=== PATIENT | female | born 1960 | race Caucasian/White ===

== ENCOUNTER 2020-01-01 09:32 | Outpatient (CLI) | payer BC, SELFPAY ==
--- NOTE | ~2020-01-01 | CT_ITS ---
EXAMINATION:CT lung screening DATE: 01/01/2020 09:57 INDICATION: Personal history of tobacco dependence. Smoker who quit 1 year ago with 44 pack year hist ory. TECHNIQUE: Computed tomography (CT) of the chest was performed without intravenous contrast. Automate d exposure control and iterative reconstruction technique were employed. The dose-length product (DLP ) was 80.52 mGy-cm. COMPARISON: Chest CT 10/30/2018 FINDINGS: There is moderate emphysema. There is mild atelectasis in right middle lobe and lingula. Ca lcified left lung nodules and calcified left hilar lymph nodes are consistent with old granulomatous disease. Again seen is a 5 mm nodule in left lower lobe. Again seen is a 6 mm nodule in right lower l obe. No pleural effusion. The heart size is normal. There are coronary artery calcifications. No nevin cardial effusion. Calcifications in the spleen are consistent with old granulomatous disease. There i s mild thoracic spondylosis. IMPRESSION: 1. Lung-RADS category 2: Benign appearance or behavior. Continue annual screening with noncontrast lo w-dose chest CT in 12 months. Reviewed, dictated and finalized at location A. IMPRESSION: 1. Lung-RADS category 2: Benign appearance or behavior. Continue annual screeni ng with noncontrast low-dose chest CT in 12 months.
== END 2020-01-01 09:33 | disposition home or self-care (01) ==
LOC: ANHIMG 09:41
PROVIDERS: PCP Family Medicine; Visit Provider Nurse Practitioner Adult Health
DX: Z12.2 Encounter for screening for malignant neoplasm of respiratory organs (principal); Z87.891 Personal history of nicotine dependence
CPT/HCPCS: G0297

== ENCOUNTER 2024-08-06 12:56 | Outpatient (CLI) | payer MEDICARE, SELFPAY ==
--- NOTE | ~2024-08-06 | XR_ITS ---
EXAMINATION: XR knee LT min 4V DATE: 08/06/2024 13:27 INDICATION: Left knee pain TECHNIQUE: Weight bearing anteroposterior and Child, sunrise, and flexed lateral views of the lef t knee were obtained COMPARISON: None. FINDINGS: Mild genu varum with mild to moderate nonuniform joint space. The medial side of the medial compartme nt. Joint spaces are normal in the lateral and patellofemoral compartments with small marginal osteop hytes at the patellofemoral compartment consistent with additional mild osteoarthritis. No fracture. Suggestion of a small to moderate-sized left knee joint effusion. Soft tissues are otherwise unremark able. IMPRESSION: 1. Mild to moderate osteoarthritis in the medial compartment and mild osteoarthritis in the patellofe moral compartment. 2. Small to moderate-sized left knee joint effusion. Reviewed, dictated and finalized at location B. TIC BOAT BUFFER IMPRESSION: 1. Mild to moderate osteoarthritis in the medial compartment and mild osteoarth ritis in the patellofemoral compartment. 2. Small to moderate-sized left knee joint effusion.
--- OUTSIDE RECORDS SUMMARY | 2024-08-06 14:28 | XMS_ITS | Clinical Summary ---
Author Organization [facility] Address [address] [place] [address] Care Team Providers Care Tearoom Hostess Name Role Phone None, Provider MD Primary Care Provider Unavaila ble Allergies Active Allergy Reactions Criticality Noted Date Comments Codeine Rash Low 09/17/2021 Levofloxacin Rash Low 09/17/2021 Nitrofurantoin Rash Low 09/17/2021 Medications methylPREDNISol one, INEZ, 4 MG tablet 6 TABLETS ON DAY ONE, 5 TABLETS DAY TWO, 4 TABLETS DAY THREE, 3 TABLETS DAY FOUR, 2 TABLETS DAY FIVE, AND 1 TABLET DAY SIX 1 each 2 Active Additional Information Patient not taking.Reported on 09/20/2022 vitamin D2, ergocalciferol, (DRISDOL) 1.25 mg capsule Take 1 capsule (1.25 mg total) by mouth once a week. 3 Active lisinopril (PRINIVIL) 10 MG tablet Take 1 tablet (10 mg total) by mouth daily. 3 Active vitamin B-12 (CYANOCOBALAMIN ) 100 MCG tablet Take 0.5 tablets (50 mcg total) by mouth daily. Active Active Problems No known active problems Encounters Date Type Department Care Team Description 06/10/2024 10:15 AM [employer] SUPERVISOR - 06/10/2024 11:59 PM [facility] Hospital Encounter [facility] [address] [place], [place] [id number] Harsha Sloan PA Hays, Michelle, [employer]ER AND PATCHER Discharge Disposition: Home or Self Care (Routine Discharge) 06/10/2024 Travel 06/05/2024 10:58 AM [employer] SUPERVISOR - 06/05/2024 11:59 PM [facility] Hospital Encounter [facility] [address] [place] [address] Harsha Sloan PA Wiegmann, Lacey M, PT Knee Pain Discharge Disposition: Home or Self Care (Routine Discharge) 06/05/2024 Travel 06/03/2024 9:30 AM [employer] SUPERVISOR - 06/03/2024 11:59 PM [employer] SUPER[employer] Hospital Encounter [facility] [address] [place] [address] Harsha Sloan PA Timmermann, Candice P, [employer]ER Discharge Disposition: Home or Self Care (Routine Discharge) 06/03/2024 Travel 05/29/2024 9:57 AM [employer] SUPERVISOR - 05/29/2024 11:59 PM [employer] SUPER[employer] Hospital Encounter [facility] [address] [place] [address] Harsha Sloan PA Emerick, Noah D, PT Knee Pain Discharge Disposition: Home or Self Care (Routine Discharge) 05/29/2024 Travel 05/27/2024 8:25 AM [employer] SUPERVISOR - 05/27/2024 11:59 PM [employer] SUPER[employer] Hospital Encounter [facility] [address] [place] [address] Harsha Sloan PA Timmermann, Candice P, [employer]ER Discharge Disposition: Home or Self Care (Routine Discharge) 05/27/2024 Travel 05/22/2024 9:28 AM [employer] SUPERVISOR - 05/22/2024 11:59 PM [employer] SUPER[employer] Hospital Encounter [facility] [address] [place] [address] Harsha Sloan PA Timmermann, Candice P, [employer]ER Discharge Disposition: Home or Self Care (Routine Discharge) 05/22/2024 Travel 05/20/2024 9:29 AM [employer] SUPERVISOR - 05/20/2024 11:59 PM [employer] SUPER[employer] Hospital Encounter [facility] [address] [place] [address] Harsha Sloan PA McClenahan, Krystal M, PT Discharge Disposition: Home or Self Care (Routine Discharge) 05/20/2024 Travel 05/16/2024 9:26 AM [employer] SUPERVISOR - 05/16/2024 11:59 PM [employer] SUPERVISOR Hospital Encounter [facility] [address] [place] [address] Harsha Sloan PA Davidson, Brooke M, [employer] AND PATCHER Discharge Disposition: Home or Self Care (Routine Discharge) 05/16/2024 Travel 05/14/2024 1:46 PM [employer] SUPERVISOR - 05/14/2024 11:59 PM [employer] SUPERVISOR Hospital Encounter [facility] [address] [place] [address] Harsha Sloan PA Wiegmann, Lacey M, PT Knee Pain Discharge Disposition: Home or Self Care (Routine Discharge) 05/14/2024 Travel from Last 3 Months Immunizations Name Administration Dates Next Due Influenza (Generic) 06/26/2013 Influenza Adult (Generic) 05/14/2021,,08/27/2019,2018,03/11,03/17/2016 Pneumococcal (Pneumovax 23) 07/08/2020 Tdap (Generic) 10/22/2017 Family History Medical History Relation Comments Heart Disease Father Cancer Mother Relation Status Comments Father Mother Social History Tobacco Use Types Packs/Day Years Used Date Smoking Tobacco: Never Passive Smoke Exposure: Never Smokeless Tobacco: Never Tobacco Cessation:Counseling Given: No Alcohol Use Standard Drinks/Week Comments Not Currently 0 (1 standard drink = 0.6 oz pur e alcohol) PHQ-2 Answer Date Recorded Patient Health Questionnaire-2 Score 0 09/20/2022 Comments Unknown Sex and Gender Information Value Date Recorded Sex Assigned at Not on file Legal Sex Female 8:03 PM CDT Gender Identity Not on file Sexual Orientation Not on file Last Filed Vital Signs Vital Sign Reading Time Taken Comments Blood Pressure 158/88 09/20/2022 8:36 AM CDT Pulse 79 09/20/2022 8:04 AM CDT Temperature 36.9 C (98.4 F) 09/20/2022 8:04 AM CDT Respiratory Rate 18 09/20/2022 8:04 AM CDT Oxygen Saturation 100% 09/20/2022 8:04 AM CDT Inhaled Oxygen Concentration - - Weight 85.8 kg (189 lb 3.2 oz) 09/20/2022 8:04 A M CDT Height 165.1 cm (5' 5 ) 09/20/2022 8:04 AM CDT Body Mass Index 31.48 09/20/2022 8:04 AM CDT Plan of Treatment Health Maintenance Due Date Last Done Comments Colorectal Cancer Screening Colonoscopy (10 Years) 1959 Hepatitis C 1977 Mammogram Screening 1999 Zoster Vaccines (1 of 2) 2009 PHQ-2 (Physician [place]) 09/21/2023 09/20/2022 COVID-19 Vaccine ( season) 2024 05/14/2021, 11/10/2020, 10/19/2020 Influenza Adult (#1) 2024 05/14/2021, 03/26/2020, 08/27/2019, Additional history exists Dexa Scan (General) 2024 Pneumococcal Vaccine: 65+ Years (2 of 2 - PCV) 2024 07/08/2020 PHQ-2 (Physician [place]) 06/11/2024 09/20/2022 DTaP, Tdap and Td Vaccines (2 - Td or Tdap) 10/23/2027 10/22/2017 RSV Immunization or 60+ Years (1 - 1-dose 75+ series) 2034 Pneumococcal Vaccine: Pediatrics (0 to 5 Years) and At-Risk Patients (6 to 64 Years) Aged Out 07/08/2020 No longer eligible based on patient's age to complete this topic Meningococcal B Vaccine Aged Out No l onger eligible based on patient's age to complete this topic Meningococcal Vaccine Aged Out No vielka fernie eligible based on patient's age to complete this topic RSV Immunizations Under 20 Months Aged Out No longer eligible based on patient's age to complete this topic Insurance MEDICARE [employer] Care Teams Tearoom Hostess Relationship Specialty Start Date End Date None, Provider, PCP - General 09/17/21
== END 2024-08-06 12:57 | disposition home or self-care (01) ==
PROVIDERS: PCP Physician Assistant; Visit Provider Orthopaedic Surgery
DX: M17.12 Unilateral primary osteoarthritis, left knee (principal); M25.462 Effusion, left knee
CPT/HCPCS: 73564